=== PATIENT | male | born 1970 | race Caucasian/White ===

== ENCOUNTER 2021-12-13 20:52 | Emergency (ER) | payer BC, SELFPAY ==
[~2021-12-13] VITALS: Ht 165.1 cm; Wt 65.9 kg
[2021-12-13 21:30] VITALS: BP 126/78
[2021-12-13] MEDS ORDERED: BOOSTRIX/ADACEL VACCINE (DIPHTH/PERTUSS/ACELL/TETANUS) 0.5ML SYR IM ONE (22:05)
[2021-12-13] MEDS ORDERED: ceFAZolin SOD 1 GM in D5W MINI-BAG PLUS 50 ML IV ONE (22:05)
[2021-12-14 01:32] LABS: HEMATOCRIT 47.3 % (42.0-52.0); HEMOGLOBIN 16.1 g/dl (13.5-17.5); MEAN CORPUSCULAR HEMOGLOBIN 35.1 pg (27.0-33.0); MEAN CORPUSCULAR VOLUME 103.1 fl (80.0-96.0); PLATELET COUNT, AUTOMATED 100 10^3/uL (150-450); RED BLOOD COUNT 4.59 10^6/uL (4.30-6.10); WHITE BLOOD COUNT 9.6 10^3/uL (4.0-10.0)
[2021-12-14 01:42] LABS: BLOOD UREA NITROGEN 8 MG/DL (7-18); CALCIUM LEVEL 8.8 MG/DL (8.5-10.1); CARBON DIOXIDE LEVEL 27 MEQ/L (21-32); CHLORIDE LEVEL 107 MEQ/L (98-107); CREATININE FOR GFR 0.81 MG/DL (0.70-1.30); GLOMERULAR FILTRATION RATE > 60.0 (>56); GLUCOSE, FASTING 96 MG/DL (70-100); POTASSIUM SERUM 3.8 MEQ/L (3.5-5.1); SODIUM LEVEL 138 MEQ/L (136-145)
[2021-12-14] MEDS ORDERED: CEPHALEXIN 500 MG CAP PO ONE (01:45)
[2021-12-14] MEDS ORDERED: CEPH500C PO (11:02)
== END 2021-12-14 01:50 | disposition left against medical advice (07) ==
LOC: M ED 20:52
DX: S62.512B Displaced fracture of proximal phalanx of left thumb, initial encounter for open fracture (principal); S62.292B Other fracture of first metacarpal bone, left hand, initial encounter for open fracture; S66.292A Other specified injury of extensor muscle, fascia and tendon of left thumb at wrist and hand level, initial encounter; Z53.9 Procedure and treatment not carried out, unspecified reason; W27.0XXA Contact with workbench tool, initial encounter; Y92.099 Unspecified place in other non-institutional residence as the place of occurrence of the external cause; Y93.9 Activity, unspecified; Y99.9 Unspecified external cause status; F17.200 Nicotine dependence, unspecified, uncomplicated
CPT/HCPCS: 12002; 71045; 73130; 80048; 85027; 90471; 90715; 96365; 99284; J0690

== ENCOUNTER 2021-12-14 09:23 | Emergency (ER) | payer SELFPAY ==
[~2021-12-14] VITALS: Ht 165.1 cm; Wt 65.0 kg
[2021-12-14 10:48] VITALS: BP 140/86
[2021-12-14] MEDS ORDERED: CEPH500C PO (11:02)
== END 2021-12-14 11:14 | disposition home or self-care (01) ==
LOC: M ED 09:23
DX: S62.512B Displaced fracture of proximal phalanx of left thumb, initial encounter for open fracture (principal); S62.292B Other fracture of first metacarpal bone, left hand, initial encounter for open fracture; S66.292A Other specified injury of extensor muscle, fascia and tendon of left thumb at wrist and hand level, initial encounter; W27.0XXA Contact with workbench tool, initial encounter; Y92.099 Unspecified place in other non-institutional residence as the place of occurrence of the external cause; Y93.89 Activity, other specified; Y99.9 Unspecified external cause status; F17.200 Nicotine dependence, unspecified, uncomplicated

== ENCOUNTER → 2021-12-16 | Outpatient (CLI) | payer SELFPAY ==
[~2021-12-16] MED LIST: CEPH500C PO; OXYC1TAB23 PO
== END ==
LOC: M RAD 11:31
PROVIDERS: ATTEND Orthopaedic Surgery Hand Surgery
DX: Z01.818 Encounter for other preprocedural examination (principal)

== ENCOUNTER → 2021-12-16 | Outpatient (CLI) | payer SELFPAY | LOC: M LABSMTC 11:11 | PROVIDERS: ATTEND Anesthesiology | DX: Z01.812 Encounter for preprocedural laboratory examination (principal); Z20.822 Contact with and (suspected) exposure to COVID-19 ==

== ENCOUNTER → 2021-12-16 | Outpatient (CLI) | payer SELFPAY ==
[2021-12-16 13:29] LABS: BASO # 0.1 10^3/uL (0.0-0.2); BASO % 0.9 % (0.0-1.0); EOS # 0.2 10^3/uL (0.0-0.5); EOS % 2.6 % (0.0-3.0); HEMOGLOBIN 17.2 g/dl (13.5-17.5); LYMPH # 1.9 10^3/uL (1.5-5.0); LYMPH % 19.9 % (24.0-44.0); MEAN CORPUSCULAR HEMOGLOBIN 35.2 pg (27.0-33.0); MEAN CORPUSCULAR HGB CONC 33.7 g/dl (32.0-36.5); MEAN CORPUSCULAR VOLUME 104.3 fl (80.0-96.0); MONO # 0.9 10^3/uL (0.0-0.8); MONO % 9.8 % (2.0-8.0); NEUTROPHILS # 6.2 10^3/uL (1.5-8.5); NEUTROPHILS % 66.5 % (36.0-66.0); RED BLOOD COUNT 4.89 10^6/uL (4.30-6.10); WHITE BLOOD COUNT 9.4 10^3/uL (4.0-10.0)
[2021-12-16 13:33] LABS: INR 0.89; PROTHROMBIN TIME 12.4 SECONDS (12.7-14.5)
[2021-12-16 13:34] LABS: PARTIAL THROMBOPLASTIN TIME 25.9 SECONDS (25.9-37.0)
[2021-12-16 13:55] LABS: ALBUMIN 3.5 GM/DL (3.2-5.2); ALT/SGPT 16 U/L (12-78); BILIRUBIN,TOTAL 0.3 MG/DL (0.2-1.0); BLOOD UREA NITROGEN 10 MG/DL (7-18); CARBON DIOXIDE LEVEL 28 MEQ/L (21-32); CHLORIDE LEVEL 107 MEQ/L (98-107); CREATININE FOR GFR 0.87 MG/DL (0.70-1.30); GLOMERULAR FILTRATION RATE > 60.0 (>56); GLUCOSE, FASTING 102 MG/DL (70-100); POTASSIUM SERUM 4.2 MEQ/L (3.5-5.1); SODIUM LEVEL 139 MEQ/L (136-145); TOTAL PROTEIN 6.7 GM/DL (6.4-8.2)
== END ==
LOC: M EKG 12:35
PROVIDERS: ATTEND Orthopaedic Surgery Hand Surgery
DX: S62.502A Fracture of unspecified phalanx of left thumb, initial encounter for closed fracture (principal); W18.30XA Fall on same level, unspecified, initial encounter; Y92.009 Unspecified place in unspecified non-institutional (private) residence as the place of occurrence of the external cause

== ENCOUNTER 2021-12-21 13:27 | Day surgery (SDC) | payer SELFPAY ==
[~2021-12-21] VITALS: Ht 165.1 cm; Wt 66.2 kg
[~2021-12-21 13:27] MED LIST changes: +LR 1,000 ML IV ONE; +ceFAZolin SOD 2 GM in IV 1 EA IV ONE
[2021-12-21] MEDS ORDERED: LIDOCAINE 2% 100MG/5ML SDV (FOR ANES.) As Ordered ONE (14:11)
[2021-12-21] MEDS ORDERED: propofoL 200 MG/20 ML VIAL As Ordered ONE (14:11)
[2021-12-21] MEDS ORDERED: MIDAZOLAM INJ 2MG/2ML VIAL (J2250 PER 1MG) As Ordered ONE (14:11)
[2021-12-21] MEDS ORDERED: fentaNYL 100 MCG/2 ML INJECTION As Ordered ONE (14:11)
[2021-12-21] MEDS ORDERED: BUPIVACAINE HCL 0.25% 30ML VIAL As Ordered ONE (14:40)
[2021-12-21] MEDS ORDERED: dexameTHASONE 4 MG/ML 1ML VIAL (J1100 PER 1MG) As Ordered ONE (16:45)
[2021-12-21] MEDS ORDERED: KETOROLAC 60MG 2ML VIAL As Ordered ONE (16:45)
[2021-12-21] MEDS ORDERED: ONDANSETRON 4MG/2ML VIAL As Ordered ONE (16:45)
[2021-12-21] MEDS ORDERED: DESFLURANE 240 ML INHALANT As Ordered ONE (16:57)
[2021-12-21] MEDS ORDERED: ACETAMINOPHEN 1000MG 100ML IV BTL (OFIRMEV) (J0131 PER 10MG) As Ordered ONE (17:06)
[2021-12-21] MEDS ORDERED: KETOROLAC 30 MG/ML 1ML VIAL IV PRN (17:18)
[2021-12-21] MEDS ORDERED: BACITRACIN OINTMENT 30GM TUBE As Ordered ONE (17:24)
[2021-12-21] MEDS ORDERED: PERC5TAB12 PO (17:44)
[2021-12-21] MEDS: HYDROMORPHONE HCL 0.5 MG/ 0.5 ML SYRINGE (J1170 PER 1) IV PRN ×4 (17:44→18:10)
[2021-12-21] MEDS ORDERED: HYDROmorphone HCL 2MG/ML 1ML VIAL As Ordered ONE (17:45)
[2021-12-21] MEDS ORDERED: LR 1,000 ML IV SCH (18:00)
[2021-12-21] MEDS ORDERED: fentaNYL 100 MCG/2 ML INJECTION IV PRN (18:00)
[2021-12-21] MEDS ORDERED: ONDANSETRON 4MG/2ML VIAL IV PRN (18:00)
[2021-12-21] MEDS: oxyCODONE 5MG TAB PO PRN ×2 (18:08→19:14)
[2021-12-21 19:29] VITALS: BP 138/80
== END 2021-12-21 19:30 | disposition home or self-care (01) ==
LOC: M SDC 13:27
PROVIDERS: ATTEND Orthopaedic Surgery Hand Surgery
DX: S62.515B Nondisplaced fracture of proximal phalanx of left thumb, initial encounter for open fracture (principal); S61.002A Unspecified open wound of left thumb without damage to nail, initial encounter; W26.8XXA Contact with other sharp object(s), not elsewhere classified, initial encounter; Y93.H9 Activity, other involving exterior property and land maintenance, building and construction; Y92.89 Other specified places as the place of occurrence of the external cause; Y99.9 Unspecified external cause status; F17.218 Nicotine dependence, cigarettes, with other nicotine-induced disorders
CPT/HCPCS: 11010; 26418; 26615; 26735; 77002; J0131; J0690; J1100; J1885; J2250; J2405; J3010

== ENCOUNTER → 2021-12-26 | Outpatient (CLI) | payer SELFPAY ==
[~2021-12-26] MED LIST changes: -LR 1,000 ML IV ONE; +PERC5TAB12 PO; -ceFAZolin SOD 2 GM in IV 1 EA IV ONE
== END ==
LOC: M SOG 08:15
PROVIDERS: ATTEND Physician Assistant
DX: Z96.89 Presence of other specified functional implants (principal); S61.002A Unspecified open wound of left thumb without damage to nail, initial encounter; X58.XXXA Exposure to other specified factors, initial encounter; Y92.9 Unspecified place or not applicable; Y93.9 Activity, unspecified; Y99.9 Unspecified external cause status

== ENCOUNTER → 2022-01-19 | Outpatient (CLI) | payer SELFPAY | LOC: M SOG 15:28 | PROVIDERS: ATTEND Physician Assistant | DX: S68.522D Partial traumatic transphalangeal amputation of left thumb, subsequent encounter (principal); W18.30XD Fall on same level, unspecified, subsequent encounter ==

== ENCOUNTER → 2022-02-03 | Outpatient (CLI) | payer SELFPAY | LOC: M SOG 10:21 | PROVIDERS: ATTEND Orthopaedic Surgery Hand Surgery | DX: S62.522D Displaced fracture of distal phalanx of left thumb, subsequent encounter for fracture with routine healing (principal) ==

== ENCOUNTER → 2022-03-07 | Outpatient (CLI) | payer SELFPAY | LOC: M SOG 08:18 | PROVIDERS: ATTEND Physician Assistant | DX: S68.522D Partial traumatic transphalangeal amputation of left thumb, subsequent encounter (principal); S66.222D Laceration of extensor muscle, fascia and tendon of left thumb at wrist and hand level, subsequent encounter ==